=== PATIENT | male | born 1990 | race African-American/Black ===

== ENCOUNTER 2024-09-20 12:22 | Emergency (ER) | payer MEDICAID ==
[~2024-09-20] VITALS: Ht 177.8 cm; Wt 97.7 kg
[2024-09-20 12:33] VITALS: TEMP 36.7; O2SAT 99
[2024-09-20] MEDS: LIDOCAINE 5% PATCH TOP STA (13:39)
[2024-09-20] MEDS: CYCLOBENZAPRINE 10MG TABLET PO ONE (13:39)
[2024-09-20] MEDS: KETOROLAC 30MG/ML VIAL IM ONE (13:39)
[2024-09-20] MEDS ORDERED: IBUP-2030 MT (15:07)
[2024-09-20] MEDS ORDERED: CYCL10TA21 MT (15:07)
[2024-09-20] MEDS ORDERED: LIDO700A30 TP (15:07)
[2024-09-20 15:29] VITALS: BP 121/78; PULSE 84; RESP 16; O2SAT 100
== END 2024-09-20 15:30 | disposition home or self-care (01) ==
LOC: ER 12:22
DX: G89.29 Other chronic pain (principal); M54.6 Pain in thoracic spine
CPT/HCPCS: 99283; 72070; 96372; J1885